=== PATIENT | female | born 1985 | race Two or more races ===

== ENCOUNTER 2017-03-04 00:08 | Emergency (ER) | payer MEDICAID ==
[~2017-03-04] VITALS: Ht 177.8 cm; Wt 108.9 kg
[2017-03-04] MEDS ORDERED: ALBUTEROL2.5 MG/3 M INH (00:18)
--- NOTE | 2017-03-04 00:41 | Emergency Room Report ---
History of Present Illness General Chief Complaint: Headache Source: Patient Present Illness HPI Is a 31-year-old female with no past medical history. She presented to the plan headache for last 4 days. Pain is motion left side but now diffuse. No relief with [id number] medication. No nausea or vomiting. No fever or chills. Pain is 10 out of 10. Does have photophobia. No focal deficit. Allergies: Coded Allergies: No Known Allergies (Unverified , 03/04/17) Patient History Past Medical History: none, see triage record, old chart reviewed Past Surgical History: none Pertinent Family History: none Social History: Denies: smoking Last Menstrual Period: February Now: No Immunizations: other Reviewed Nursing Documentation: PMH: Agreed, PSxH: Agreed Nursing Documentation-PMH Hx Asthma: Yes Review of Systems Eye: Denies: blurred vision, eye pain ENT: Denies: ear pain, nose congestion, throat swelling Respiratory: Denies: cough, shortness of breath Cardiovascular: Denies: chest pain, palpitations Gastrointestinal: Denies: abdominal pain, diarrhea, nausea, vomiting Musculoskeletal: Denies: back pain, joint pain Skin: Denies: rash Neurological: Reports: headache, Denies: numbness Endocrine: Denies: increased thirst, increased urine Hematologic/Lymphatic: Denies: easy bruising All Other Systems: negative except mentioned in HPI Physical Exam Vital Signs Date Time Temp Pulse Resp B/P Pulse Ox O2 Delivery O2 Flow Rate FiO2 03/04/17 00:13 98.1 56 16 157/79 98 Room Air vitals with hypertension Sp02 EP Interpretation: reviewed, normal General Appearance: well appearing, no apparent distress, alert Head: normocephalic, atraumatic Eyes: bilateral eye EOMI, bilateral eye PERRL ENT: hearing grossly normal, normal pharynx Neck: full range of motion, supple, no meningismus Respiratory: chest non-tender, lungs clear, normal breath sounds Cardiovascular #1: regular rate, rhythm, no murmur Gastrointestinal: normal bowel sounds, non tender, no mass, no organomegaly, no bruit, non-distended Musculoskeletal: back normal, gait/station normal, normal range of motion Psychiatric: mood/affect normal Skin: warm/dry Medical Decision Making Diagnostic Impression: Primary Impression: Headache Qualified Codes: R51 - Headache ER Course Patient with headache. Because it is new and worsen than her usual, CT scan was ordered. CT negative. CT/MRI/US Diagnostic Results CT/MRI/US Diagnostic Results : Imaging Test Ordered: cT head Impression negative per radiologist Last Vital Signs Date Time Temp Pulse Resp B/P Pulse Ox O2 Delivery O2 Flow Rate FiO2 03/04/17 00:13 98.1 56 16 157/79 98 Room Air Status: improved Disposition: HOME, SELF-CARE Condition: Stable Scripts Ibuprofen* (MOTRIN*) 600 Mg Tablet 600 MG ORAL THREE TIMES A DAY, #30 TAB 0 Refills Prov: MURRAY LONGORIA M.D. 03/04/17 Hydrocodone/Acetaminophen 5-325* (HYDROCODONE/ACETAMINOPHEN 5-325*) 1 Each Tablet 1 TAB ORAL Q6H Y for For Pain, #15 TAB 0 Refills Prov: MURRAY LONGORIA M.D. 03/04/17 Referrals: NOT CHOSEN [facility]/,REFERRING (PCP) Patient Instructions: General Headache Without Cause Additional Instructions: Followup with your DrLashell in 2-3 days. Return if worse. MURRAY LONGORIA M.D. Mar 04, 2017 00:41
[2017-03-04] MEDS ORDERED: Metoclopramide 10mg/2ml Inj IVP ONE (00:45)
[2017-03-04] MEDS ORDERED: Ketorolac 30mg Inj IV ONE (00:45)
[2017-03-04] MEDS ORDERED: DiphenhydrAMINE 50mg/ml Inj IVP ONE (00:45)
[2017-03-04] MEDS ORDERED: Dexamethasone 4mg/ml vial IVP ONE (00:45)
[2017-03-04] MEDS ORDERED: Morphine Sulfate 4mg/ml Inj IVP ONE (01:15)
[2017-03-04] MEDS ORDERED: HYDROCODON-ACE1 EA15 ORAL (02:01)
[2017-03-04] MEDS ORDERED: IBUPROFEN600 MG ORAL (02:01)
[2017-03-04 02:08] VITALS: BP 157/79
[2017-03-04 02:09] VITALS: BP 157/79
--- NOTE | 2017-03-04 09:07 | Diagnostic Imaging Report ---
Indication: PAIN Technique: Continuous helical CT scanning of the head was performed without intravenous contrast material. Axial and coronal 5 mm sections were generated. Radiation dose was minimized using automated exposure control Dose: Total Dose Length Product - DLP [address] Dose Index - CTDIvol(s) 70.38 mGy. Comparison: Findings: The ventricular system is normal in size and configuration. There is no shift of midline structures. No abnormal extra-axial fluid collections are noted. There is no evidence of intracerebral bleeding. No other abnormal high or low density areas are noted within the brain. Included orbits and sinuses are unremarkable. The calvarium is intact. Normal allen-white differentiation. Impression: Negative. This agrees with the preliminary interpretation provided overnight by [facility] service. The CT scanner at [facility] is accredited by the [employer] and the scans are performed using protocols designed to limit radiation exposure to as low as reasonably achievable to attain images of sufficient resolution adequate for diagnostic evaluation.
== END 2017-03-04 02:10 | disposition home or self-care (01) ==
LOC: EMR 00:21
DX: R51 Headache (principal); J45.909 Unspecified asthma, uncomplicated
CPT/HCPCS: 70450; 96374; 96375; 99284; J1100; J1200; J1885; J2270; J2405

== ENCOUNTER 2017-05-13 00:52 | Emergency (ER) | payer MEDICAID ==
[~2017-05-13] VITALS: Ht 177.8 cm; Wt 97.5 kg
[~2017-05-13 00:52] MED LIST: ALBUTEROL2.5 MG/3 M INH; HYDROCODON-ACE1 EA15 ORAL; IBUPROFEN600 MG ORAL
[2017-05-13] MEDS ORDERED: PREDNISONE10 MG ORAL (01:04)
[2017-05-13 01:10] VITALS: BP 129/74
[2017-05-13] MEDS ORDERED: BACTRIM DS TAB1 EAC1 ORAL (01:25)
[2017-05-13] MEDS ORDERED: MUPIROCIN22 GM TOPIC (01:25)
--- NOTE | 2017-05-13 01:26 | Emergency Room Report ---
History of Present Illness General Chief Complaint: Skin Rash/Abscess Source: Patient Present Illness HPI Is a 31-year-old female with a history of asthma. She presents with redness and itchiness to the back of her legs. Onset yesterday. No trauma. She was outside her at her aunts house. Benadryl help. Did not feel any biting her. Denies any other complaint. No fever or chills no nausea no vomiting. Allergies: Coded Allergies: No Known Allergies (Unverified , 05/13/17) Patient History Past Medical History: see triage record, old chart reviewed, asthma Past Surgical History: none Pertinent Family History: none Social History: Denies: smoking Last Menstrual Period: 2 weeks ago Now: No Immunizations: other Reviewed Nursing Documentation: PMH: Agreed, PSxH: Agreed Nursing Documentation-PMH Past Medical History: No History, Except For Hx Asthma: Yes Review of Systems Eye: Denies: eye pain, blurred vision ENT: Denies: ear pain, nose congestion, throat swelling Respiratory: Denies: cough, shortness of breath Cardiovascular: Denies: chest pain, palpitations Gastrointestinal: Denies: abdominal pain, diarrhea, nausea, vomiting Musculoskeletal: Denies: back pain, joint pain Skin: Denies: rash Neurological: Denies: headache, numbness Endocrine: Denies: increased thirst, increased urine Hematologic/Lymphatic: Denies: easy bruising All Other Systems: negative except mentioned in HPI Physical Exam Vital Signs Date Time Temp Pulse Resp B/P (MAP) Pulse Ox O2 Delivery O2 Flow Rate FiO2 05/13/17 00:59 98.1 52 16 129/74 96 Room Air vitals normal Sp02 EP Interpretation: reviewed, normal General Appearance: well appearing, no apparent distress, alert Head: normocephalic, atraumatic Eyes: bilateral eye PERRL, bilateral eye EOMI ENT: hearing grossly normal, normal pharynx Neck: full range of motion, supple, no meningismus Respiratory: chest non-tender, lungs clear, normal breath sounds Cardiovascular #1: regular rate, rhythm, no murmur Gastrointestinal: normal bowel sounds, non tender, no mass, no organomegaly, no bruit, non-distended Musculoskeletal: back normal, gait/station normal, normal range of motion, other - In the back of both popliteal areas, there is an area of erythema measuring about 2 cm. No abscess. On her right upper thigh there is a 1 cm area of erythema with surrounding edema. No abscess. Neurologic: alert, oriented x3 Psychiatric: mood/affect normal Skin: warm/dry Medical Decision Making Diagnostic Impression: Primary Impression: Cellulitis and abscess of lower extremity ER Course Patient with redness to her lower extremity. Most likely cellulitis. No evidence of abscess. Maybe an allergic reaction. We'll discharge home. Last Vital Signs Date Time Temp Pulse Resp B/P (MAP) Pulse Ox O2 Delivery O2 Flow Rate FiO2 05/13/17 00:59 98.1 52 16 129/74 96 Room Air Status: improved Disposition: HOME, SELF-CARE Condition: Stable Scripts Trimethoprim/Sulfamethoxazole 160/800* (BACTRIM DS TABLET*) 1 Each Tablet 1 TAB ORAL Q12H, #14 TAB 0 Refills Prov: MURRAY LONGORIA M.D. 05/13/17 Mupirocin* (MUPIROCIN*) 22 Gm Oint...g. 1 APPLIC TOPIC THREE TIMES A DAY, #22 GM Prov: MURRAY LONGORIA M.D. 05/13/17 Referrals: [facility] [place]ERR (PCP) Additional Instructions: Followup with your Dr. in 7 days. Keep wound clean. Return if worse. Clean with hydrogen peroxide. MURRAY LONGORIA M.D. May 13, 2017 01:26
[2017-05-13] MEDS ORDERED: Bactrim DS (160mg/800mg) tab ORAL ONE (01:30)
[2017-05-13 01:33] VITALS: BP 129/74
== END 2017-05-13 01:32 | disposition home or self-care (01) ==
LOC: EMR 01:13
DX: L03.116 Cellulitis of left lower limb (principal); L03.115 Cellulitis of right lower limb; J45.909 Unspecified asthma, uncomplicated
CPT/HCPCS: 99284

== ENCOUNTER 2018-03-13 20:59 | Emergency (ER) | payer MEDICAID ==
[~2018-03-13] VITALS: Ht 180.3 cm; Wt 80.7 kg
[~2018-03-13 20:59] MED LIST changes: +BACTRIM DS TAB1 EAC1 ORAL; +MUPIROCIN22 GM TOPIC; +PREDNISONE10 MG ORAL
[2018-03-13] MEDS ORDERED: NKM (21:12)
--- NOTE | 2018-03-13 21:22 | Emergency Room Report ---
History of Present Illness General Chief Complaint: General Complaint Source: Patient, Medical Record Present Illness HPI Patient presents with pain and swelling behind her L ear. This has been for at least 2 days. The pain is now rated 8/10 and worse when touched or when she lays on that side - more burning. Slight radiation up side of head. No change in hearing or pain with pull on ear. She thought it started as a bug bite. No treatment. No sore throat, trauma, cough. other rashes. She did not take anything for the pain. Not . Allergies: Coded Allergies: CODEINE (Verified Allergy, Unknown, 03/13/18) STRAWBERRY (Verified Allergy, Unknown, 03/13/18) Patient History Past Medical History: see triage record Social History: Denies: smoking Social History Narrative from home Last Menstrual Period: 02/19/18 Now: No Reviewed Nursing Documentation: PMH: Agreed; PSxH: Agreed Nursing Documentation-PMH Hx Asthma: Yes Review of Systems Constitutional: Reports: see HPI ENT: Reports: see HPI Respiratory: Reports: see HPI Cardiovascular: Denies: chest pain Genitourinary: Reports: see HPI Musculoskeletal: Reports: see HPI Skin: Reports: see HPI Neurological: Reports: see HPI Physical Exam Vital Signs Date Time Temp Pulse Resp B/P (MAP) Pulse Ox O2 Delivery O2 Flow Rate FiO2 03/13/18 21:09 98.6 58 16 119/80 96 Room Air 98.6 ENT: normal pharynx, TMs + canals normal, other - no pinna tenderness. Mastoid area with swollen skin and is area of tenderness Neck: full range of motion, supple, no bony tend Respiratory: chest non-tender, lungs clear, normal breath sounds Cardiovascular #1: regular rate, rhythm Cardiovascular #2: 2+ radial (R) Gastrointestinal: normal inspection Musculoskeletal: digits/nails normal, gait/station normal, normal range of motion Neurologic: oriented x3, grossly normal Psychiatric: mood/affect normal Skin: warm/dry, other - erythema behind L ear Medical Decision Making Diagnostic Impression: Primary Impression: Cellulitis Qualified Codes: L03.221 - Cellulitis of neck ER Course Patient with swelling and pain behind L ear. DDx: cellulitis, adenitis, OE amongst others. Not toxic or febrile. Exam most consistent with cellulitis and against mastoiditis. Antibiotics begun (will cover for possible P aeruginosa). Improved with treatment. Patient stable for outpatient observation and treatment. Last Vital Signs Date Time Temp Pulse Resp B/P (MAP) Pulse Ox O2 Delivery O2 Flow Rate FiO2 03/13/18 22:45 0/0 03/13/18 21:39 209.5 58 16 96 Room Air 209.5 Status: improved Disposition: HOME, SELF-CARE Condition: Improved Scripts Ibuprofen* (MOTRIN*) 600 Mg Tablet 600 MG ORAL Q6H PRN for For Pain, #20 TAB Prov: Dino Sue M.D. 03/13/18 Bacitracin (Bacitracin) 28.4 Gm Oint...g. 1 APPLIC TOPIC BID, #20 GM Prov: Dino Sue M.D. 03/13/18 Ciprofloxacin Hcl* (CIPROFLOXACIN HCL*) 500 Mg Tablet 500 MG ORAL Q12H, #14 TAB 0 Refills Prov: Dino Sue M.D. 03/13/18 Dino Sue M.D. Mar 13, 2018 21:22
[2018-03-13] MEDS ORDERED: IBUPROFEN600 MG ORAL (21:24)
[2018-03-13] MEDS ORDERED: BACITRACIN15 GM TOPIC (21:24)
[2018-03-13] MEDS ORDERED: CIPROFLOXACIN500 M2 ORAL (21:24)
[2018-03-13] MEDS ORDERED: Ciprofloxacin 500mg tab ORAL ONE (21:30)
[2018-03-13 21:39] VITALS: BP 119/80
[2018-03-13 22:45] VITALS: BP 0/0
== END 2018-03-13 22:45 | disposition home or self-care (01) ==
LOC: EMR 21:47
DX: L03.221 Cellulitis of neck (principal); J45.909 Unspecified asthma, uncomplicated; Z88.6 Allergy status to analgesic agent; Z91.018 Allergy to other foods
CPT/HCPCS: 99282

== ENCOUNTER 2018-03-17 21:42 | Emergency (ER) | payer MEDICAID ==
[~2018-03-17] VITALS: Ht 180.3 cm; Wt 81.6 kg
[~2018-03-17 21:42] MED LIST changes: +BACITRACIN15 GM TOPIC; +CIPROFLOXACIN500 M2 ORAL; +NKM
[2018-03-17] MEDS ORDERED: DiphenhydrAMINE 50mg/ml Inj IVP ONE (23:15)
[2018-03-17] MEDS ORDERED: Solu-MEDROL 125mg Inj IVP ONE (23:15)
[2018-03-17] MEDS ORDERED: PREDNISONE20 MG ORAL (23:46)
[2018-03-17] MEDS ORDERED: DOXYCYCLINE MO100 MG ORAL (23:46)
[2018-03-17] MEDS ORDERED: BENADRYL25 MG ORAL (23:46)
[2018-03-17] MEDS ORDERED: MUPIROCIN22 GM TOPIC (23:46)
--- NOTE | 2018-03-17 23:46 | Emergency Room Report ---
History of Present Illness General Chief Complaint: Skin Rash/Abscess Source: Patient, Medical Record Present Illness HPI Is a 32-year-old female who was seen here the other day for cellulitis of her left neck. She was prescribe Cipro and bacitracin. Since she took the antibiotics and use the ointment she is getting very itchy and breaking out more. Resting to be spreading to the rest of her body. Prickly in nature. No fever chills but no nausea no vomiting. She took Benadryl at home which helped. Worse with scratching. Respiratory issue. Allergies: Coded Allergies: CODEINE (Verified Allergy, Unknown, 03/13/18) STRAWBERRY (Verified Allergy, Unknown, 03/13/18) Patient History Past Medical History: see triage record, old chart reviewed Past Surgical History: other Pertinent Family History: none Social History: Denies: smoking Last Menstrual Period: last month Now: No Immunizations: other Reviewed Nursing Documentation: PMH: Agreed; PSxH: Agreed Nursing Documentation-PMH Hx Asthma: Yes Review of Systems Eye: Denies: eye pain, blurred vision ENT: Denies: ear pain, nose congestion, throat swelling Respiratory: Denies: cough, shortness of breath Cardiovascular: Denies: chest pain, palpitations Gastrointestinal: Denies: abdominal pain, diarrhea, nausea, vomiting Musculoskeletal: Denies: back pain, joint pain Skin: Reports: rash Neurological: Denies: headache, numbness Endocrine: Denies: increased thirst, increased urine Hematologic/Lymphatic: Denies: easy bruising All Other Systems: negative except mentioned in HPI Physical Exam Vital Signs Date Time Temp Pulse Resp B/P (MAP) Pulse Ox O2 Delivery O2 Flow Rate FiO2 03/17/18 22:19 98.5 48 16 118/76 93 Room Air 98.4 vitals unremarkable Sp02 EP Interpretation: reviewed, normal General Appearance: well appearing, no apparent distress, alert Head: normocephalic, atraumatic Eyes: bilateral eye PERRL, bilateral eye EOMI ENT: hearing grossly normal, normal pharynx Neck: full range of motion, supple, no meningismus, other - She has multiple small prickly rash behind her ear spreading down to her neck. Also similar rash to the scattered area of her torso. Respiratory: chest non-tender, lungs clear, normal breath sounds Cardiovascular #1: regular rate, rhythm, no murmur Gastrointestinal: normal bowel sounds, non tender, no mass, no organomegaly, no bruit, non-distended Musculoskeletal: back normal, gait/station normal, normal range of motion Psychiatric: mood/affect normal Skin: warm/dry Medical Decision Making Diagnostic Impression: Primary Impression: Cellulitis Qualified Codes: L03.221 - Cellulitis of neck Additional Impression: Allergic reaction caused by a drug Qualified Codes: T78.40XA - Allergy, unspecified, initial encounter ER Course Patient with allergic reaction to either Cipro and or bacitracin. We'll stop both of it. No evidence of anaphylaxis or rest or issue. This may be cellulitis. Unlikely to be shingles since his more than one dermatome and cross midline. Last Vital Signs Date Time Temp Pulse Resp B/P (MAP) Pulse Ox O2 Delivery O2 Flow Rate FiO2 03/17/18 22:19 98.5 48 16 118/76 93 Room Air 98.4 Status: improved Disposition: HOME, SELF-CARE Condition: Stable Scripts Mupirocin* (MUPIROCIN*) 22 Gm Oint...g. 1 APPLIC TOPIC THREE TIMES A DAY, #22 GM Prov: MURRAY LONGORIA M.D. 03/17/18 Prednisone* (PREDNISONE*) 20 Mg Tablet 40 MG ORAL DAILY, #10 TAB Prov: MURRAY LONGORIA M.D. 03/17/18 Doxycycline Monohydrate* (DOXYCYCLINE MONOHYDRATE*) 100 Mg Capsule 100 MG ORAL Q12H, #14 CAP 0 Refills Prov: MURRAY LONGORIA M.D. 03/17/18 Diphenhydramine Hcl* (BENADRYL*) 25 Mg Capsule 50 MG ORAL Q6H PRN for Itching, #30 CAP Prov: MURRAY LONGORIA M.D. 03/17/18 Referrals: [facility] [place] (PCP) Additional Instructions: Stop Cipro and bacitracin. Follow-up with your doctor in 7 days. Return of worse. MURRAY LONGORIA M.D. Mar 17, 2018 23:46
[2018-03-18 00:04] VITALS: BP 118/76
== END 2018-03-18 00:06 | disposition home or self-care (01) ==
LOC: EMR 22:39
DX: L03.221 Cellulitis of neck (principal); T50.905A Adverse effect of unspecified drugs, medicaments and biological substances, initial encounter; J45.909 Unspecified asthma, uncomplicated; Z88.6 Allergy status to analgesic agent; Z91.018 Allergy to other foods; Y92.9 Unspecified place or not applicable
CPT/HCPCS: 99284; J1200; J2930

== ENCOUNTER 2018-04-20 21:57 | Emergency (ER) | payer MEDICAID ==
[~2018-04-20] VITALS: Ht 180.3 cm; Wt 83.9 kg
[~2018-04-20 21:57] MED LIST changes: +BENADRYL25 MG ORAL; +DOXYCYCLINE MO100 MG ORAL; +PREDNISONE20 MG ORAL
--- NOTE | 2018-04-20 22:17 | Emergency Room Report ---
History of Present Illness General Chief Complaint: Chest Pain Source: Patient Present Illness HPI Patient is a 32 female who presented after increased chest discomfort. She describes as a pressure-like sensation. This of been present since approximate 5:00 in the morning. The patient seen by her doctor earlier in the day. She reportedly had normal EKG. Patient denies feeling dizzy or lightheaded. She denies any prior history of asthma. She had not been vomiting. She denies any leg pain or swelling. She reports having recent menses. She states said prior history of some anemia. She states she's not recently been tested. Allergies: Coded Allergies: CIPROFLOXACIN (Verified Allergy, Unknown, 04/20/18) CODEINE (Verified Allergy, Unknown, 03/13/18) STRAWBERRY (Verified Allergy, Unknown, 03/13/18) Patient History Past Medical History: see triage record Last Menstrual Period: 04/11/18 Now: No Reviewed Nursing Documentation: PMH: Agreed; PSxH: Agreed Nursing Documentation-PMH Hx Asthma: Yes Review of Systems All Other Systems: negative except mentioned in HPI Physical Exam Vital Signs Date Time Temp Pulse Resp B/P (MAP) Pulse Ox O2 Delivery O2 Flow Rate FiO2 04/20/18 22:02 98.2 65 116/74 Room Air 98.2 Sp02 EP Interpretation: reviewed, normal General Appearance: normal inspection, well appearing, no apparent distress, alert, GCS 15 Head: atraumatic ENT: normal ENT inspection, hearing grossly normal, normal voice Neck: normal inspection, full range of motion, supple, no bony tend Respiratory: normal inspection, lungs clear, normal breath sounds, no respiratory distress, no retraction, no wheezing Cardiovascular #1: regular rate, rhythm, no edema Gastrointestinal: normal inspection, normal bowel sounds, non tender, soft, no guarding, no hernia Genitourinary: no CVA tenderness Musculoskeletal: normal inspection, back normal, normal range of motion Neurologic: normal inspection, alert, responsive, speech normal Psychiatric: normal inspection, judgement/insight normal, mood/affect normal Skin: normal inspection, normal color, no rash Medical Decision Making Diagnostic Impression: Primary Impression: Atypical chest pain ER Course Patient presented for chest pain. Differential diagnosis included but was not limited to acute coronary syndrome, pulmonary embolism, pneumonia, aortic dissection, shingles, pneumothorax, aortic dissection, esophageal rupture, pericarditis. Because of complexity of patient's case laboratory testing and imaging studies were ordered. The laboratory studies were unremarkable. The chest x-ray showed no evidence of pneumonia infiltrate or pneumothorax. The patient given prescription for ibuprofen for pain.The patient is advised to follow up with primary care doctor in 1-2 days. Patient is advised to return if any worsening condition or if any changes in status that are concerning. This report is dictated with [employer] shoe salesperson software which may occasionally lead to discrepancies related to use of this software. Labs Test 04/20/18 22:40 White Blood Count 6.5 K/UL (4.8-10.8) Red Blood Count 4.31 M/UL (4.20-5.40) Hemoglobin 13.6 G/DL (12.0-16.0) Hematocrit 40.1 % (37.0-47.0) Mean Corpuscular Volume 93 FL (80-99) Mean Corpuscular Hemoglobin 31.5 PG (27.0-31.0) Mean Corpuscular Hemoglobin Concent 33.9 G/DL (32.0-36.0) Red Cell Distribution Width 12.4 % (11.6-14.8) Platelet Count 209 K/UL (150-450) Mean Platelet Volume 8.3 FL (6.5-10.1) Neutrophils (%) (Auto) 56.8 % (45.0-75.0) Lymphocytes (%) (Auto) 34.0 % (20.0-45.0) Monocytes (%) (Auto) 6.6 % (1.0-10.0) Eosinophils (%) (Auto) 1.4 % (0.0-3.0) Basophils (%) (Auto) 1.1 % (0.0-2.0) Urine Color Pale yellow Urine Appearance Clear Urine pH 6 (4.5-8.0) Urine Specific [place] 1.015 (1.005-1.035) Urine Protein Negative (NEGATIVE) Urine Glucose (UA) Negative (NEGATIVE) Urine Ketones Negative (NEGATIVE) Urine Occult Blood Negative (NEGATIVE) Urine Nitrite Negative (NEGATIVE) Urine Bilirubin Negative (NEGATIVE) Urine Urobilinogen 1 MG/DL (0.0-1.0) Urine Leukocyte Esterase Negative (NEGATIVE) Urine HCG, Qualitative Negative (NEGATIVE) Sodium Level 138 MMOL/L (136-145) Potassium Level 3.4 MMOL/L (3.5-5.1) Chloride Level 105 MMOL/L (98-107) Carbon Dioxide Level 25 MMOL/L (21-32) Anion Gap 8 mmol/L (5-15) Blood Urea Nitrogen 12 mg/dL (7-18) Creatinine 0.8 MG/DL (0.55-1.30) Estimat Glomerular Filtration Rate > 60 mL/min (>60) Glucose Level 109 MG/DL (74-106) Calcium Level 8.8 MG/DL (8.5-10.1) Total Bilirubin 0.8 MG/DL (0.2-1.0) Aspartate Amino Transf (AST/SGOT) 17 U/L (15-37) Alanine Aminotransferase (ALT/SGPT) 19 U/L (12-78) Alkaline Phosphatase 55 U/L (46-116) Total Creatine Kinase 184 U/L (26-308) Creatine Kinase MB 2.2 NG/ML (0.0-3.6) Creatine Kinase MB Relative Index 1.1 Troponin I 0.000 ng/mL (0.000-0.056) Pro-B-Type Natriuretic Peptide 19 pg/mL (0-125) Total Protein 7.1 G/DL (6.4-8.2) Albumin 3.6 G/DL (3.4-5.0) Globulin 3.5 g/dL Albumin/Globulin Ratio 1.0 (1.0-2.7) Lipase 104 U/L (73-393) EKG Diagnostic Results Rate: normal - 60 Rhythm: NSR ST Segments: no acute changes ASA given to the pt in ED: No Rhythm Strip Diag. Results EP Interpretation: yes Rhythm: NSR, no PVC's, no ectopy Last Vital Signs Date Time Temp Pulse Resp B/P (MAP) Pulse Ox O2 Delivery O2 Flow Rate FiO2 04/20/18 22:02 98.2 65 116/74 Room Air 98.2 Status: improved Disposition: HOME, SELF-CARE Condition: Stable Scripts Ibuprofen* (MOTRIN*) 600 Mg Tablet 600 MG ORAL Q8H PRN for For Pain, #30 TAB 0 Refills Prov: Valdo Abel MD 04/21/18 Valdo Abel MD Apr 20, 2018 22:17
[2018-04-20] MEDS ORDERED: Albuterol/Ipratropium 3ml neb HHN ONE (22:45)
[2018-04-20 23:02] LABS: APPEARANCE,URINE CLEAR; BILIRUBIN, URINE NEGATIVE (NEGATIVE); COLOR,URINE PALE YELLOW; GLUCOSE, URINE (UA) NEGATIVE (NEGATIVE); KETONES,URINE NEGATIVE (NEGATIVE); LEUKOCYTE ESTERASE ,URINE NEGATIVE (NEGATIVE); NITRITE,URINE NEGATIVE (NEGATIVE); PH,URINE 6 (4.5-8.0); PROTEIN,URINE NEGATIVE (NEGATIVE); UROBILINOGEN,URINE 1 MG/DL (0.0-1.0)
[2018-04-20 23:03] LABS: BASOPHILS % (AUTO) 1.1 % (0.0-2.0); EOSINOPHILS % (AUTO) 1.4 % (0.0-3.0); HEMATOCRIT 40.1 % (37.0-47.0); HEMOGLOBIN 13.6 G/DL (12.0-16.0); MEAN CORPUSCULAR VOLUME 93 FL (80-99); MONOCYTES % (AUTO) 6.6 % (1.0-10.0); NEUTROPHILS % (AUTO) 56.8 % (45.0-75.0); PLATELET COUNT 209 K/UL (150-450); RED BLOOD COUNT 4.31 M/UL (4.20-5.40); RED CELL DISTRIBUTION WIDTH 12.4 % (11.6-14.8); WHITE BLOOD COUNT 6.5 K/UL (4.8-10.8)
[2018-04-20 23:15] LABS: ANION GAP 8 mmol/L (5-15); BLOOD UREA NITROGEN 12 mg/dL (7-18); CALCIUM 8.8 MG/DL (8.5-10.1); CARBON DIOXIDE 25 MMOL/L (21-32); CHLORIDE 105 MMOL/L (98-107); CREATININE 0.8 MG/DL (0.55-1.30); POTASSIUM 3.4 MMOL/L (3.5-5.1); SODIUM 138 MMOL/L (136-145)
[2018-04-20 23:29] LABS: ALANINE AMINOTRANSFERASE 19 U/L (12-78); ALBUMIN 3.6 G/DL (3.4-5.0); ALKALINE PHOSPHATASE 55 U/L (46-116); ASPARTATE AMINO TRANSFERASE 17 U/L (15-37); BILIRUBIN,TOTAL 0.8 MG/DL (0.2-1.0); CKMB 2.2 NG/ML (0.0-3.6); CREATINE KINASE 184 U/L (26-308)
[2018-04-21 00:04] VITALS: BP 118/74
[2018-04-21] MEDS ORDERED: Ketorolac 30mg Inj IV ONE (00:30)
[2018-04-21] MEDS ORDERED: IBUPROFEN600 MG ORAL (00:52)
[2018-04-21 01:03] VITALS: BP 132/94
[2018-04-21 01:05] VITALS: BP 132/94
--- NOTE | 2018-04-21 10:33 | Diagnostic Imaging Report ---
Indication: Chest pain Technique: One view of the chest Comparison: none Findings: Lungs and pleural spaces are clear. Heart size is normal Impression: No acute process
== END 2018-04-21 01:05 | disposition home or self-care (01) ==
LOC: EMR 22:24
DX: R07.89 Other chest pain (principal); J45.909 Unspecified asthma, uncomplicated; Z91.018 Allergy to other foods; Z88.8 Allergy status to other drugs, medicaments and biological substances
CPT/HCPCS: 36415; 71045; 80053; 81003; 81025; 82550; 82553; 83690; 83880; 84484; 85025; 93005; 94640; 94664; 96374; 99284; J1885; J7620

== ENCOUNTER 2018-06-01 19:22 | Emergency (ER) | payer MEDICAID ==
[~2018-06-01] VITALS: Ht 180.3 cm; Wt 108.0 kg
[2018-06-01] MEDS ORDERED: Morphine Sulfate 4mg/ml Inj (IV USE ONLY) IVP ONE (20:00)
[2018-06-01 20:24] LABS: BASOPHILS % (AUTO) 1.6 % (0.0-2.0); EOSINOPHILS % (AUTO) 0.7 % (0.0-3.0); HEMATOCRIT 40.6 % (37.0-47.0); HEMOGLOBIN 14.1 G/DL (12.0-16.0); LYMPHOCYTES % (AUTO) 37.1 % (20.0-45.0); MEAN CORPUSCULAR VOLUME 93 FL (80-99); MONOCYTES % (AUTO) 6.6 % (1.0-10.0); PLATELET COUNT 221 K/UL (150-450); RED BLOOD COUNT 4.37 M/UL (4.20-5.40); RED CELL DISTRIBUTION WIDTH 11.6 % (11.6-14.8); WHITE BLOOD COUNT 8.8 K/UL (4.8-10.8)
[2018-06-01 20:44] LABS: ANION GAP 13 mmol/L (5-15); BLOOD UREA NITROGEN 7 mg/dL (7-18); CALCIUM 9.5 MG/DL (8.5-10.1); CARBON DIOXIDE 21 MMOL/L (21-32); CHLORIDE 102 MMOL/L (98-107); CREATININE 0.9 MG/DL (0.55-1.30); POTASSIUM 3.5 MMOL/L (3.5-5.1); SODIUM 135 MMOL/L (136-145)
[2018-06-01] MEDS ORDERED: Ketorolac 30mg Inj IV ONE (20:45)
[2018-06-01 20:49] LABS: ALANINE AMINOTRANSFERASE 19 U/L (12-78); ALBUMIN 3.9 G/DL (3.4-5.0); ALKALINE PHOSPHATASE 56 U/L (46-116); ASPARTATE AMINO TRANSFERASE 16 U/L (15-37); BILIRUBIN,TOTAL 0.9 MG/DL (0.2-1.0)
[2018-06-01 21:00] LABS: APPEARANCE,URINE CLEAR; BILIRUBIN, URINE NEGATIVE (NEGATIVE); COLOR,URINE PALE YELLOW; GLUCOSE, URINE (UA) NEGATIVE (NEGATIVE); KETONES,URINE NEGATIVE (NEGATIVE); LEUKOCYTE ESTERASE ,URINE NEGATIVE (NEGATIVE); NITRITE,URINE NEGATIVE (NEGATIVE); PH,URINE 8 (4.5-8.0); PROTEIN,URINE NEGATIVE (NEGATIVE); UROBILINOGEN,URINE NORMAL MG/DL (0.0-1.0)
[2018-06-01] MEDS ORDERED: CYCLOBENZAPRINE10 MG ORAL (21:05)
[2018-06-01] MEDS ORDERED: IBUPROFEN600 MG ORAL (21:05)
[2018-06-01] MEDS ORDERED: NORCO 5-325 TA1 EACH ORAL (21:05)
[2018-06-01 21:23] VITALS: BP 124/78
[2018-06-01 21:24] VITALS: BP 124/78
--- NOTE | 2018-06-01 21:42 | Emergency Room Report ---
History of Present Illness General Chief Complaint: Back Pain-No Injury Source: Patient Present Illness HPI Patient is a 32-year-old female who presented after increased low back pain radiating to the left leg. The patient had previous history of asthma. She reports taking steroids intermittently. She denies any recent trauma. She denies any fever. She denies IV drug use. The patient was having worsening pain the with ambulation. She denies any abdominal discomfort or dysuria. The pain was located to her low back.The patient states that she had previously been having pain since yesterday. She presented having increased difficulty with ambulation.The patient noted in the low mid back and radiated to the left leg.Patient denies any recent steroid use. Allergies: Coded Allergies: CIPROFLOXACIN (Verified Allergy, Unknown, 04/20/18) CODEINE (Verified Allergy, Unknown, 03/13/18) STRAWBERRY (Verified Allergy, Unknown, 03/13/18) Patient History Past Medical History: see triage record, asthma Now: No Reviewed Nursing Documentation: PMH: Agreed; PSxH: Agreed Nursing Documentation-PMH Hx Asthma: Yes Review of Systems All Other Systems: negative except mentioned in HPI Physical Exam Vital Signs Date Time Temp Pulse Resp B/P (MAP) Pulse Ox O2 Delivery O2 Flow Rate FiO2 06/01/18 19:25 99.3 75 20 129/87 99 Room Air 99.3 General Appearance: well appearing, no apparent distress, alert, GCS 15, non- toxic Head: normocephalic, atraumatic ENT: hearing grossly normal, normal voice Neck: full range of motion, supple Respiratory: no respiratory distress, speaking full sentences Cardiovascular #1: normal inspection, normal peripheral pulses, regular rate, rhythm Gastrointestinal: normal inspection Musculoskeletal: normal inspection, decreased range of mation, other - antalgic gait Neurologic: normal inspection, alert, oriented x3, responsive, transmission line engineer III-XII nml as tested, abnormal gait - antaglic Psychiatric: mood/affect normal Skin: no rash Medical Decision Making Diagnostic Impression: Primary Impression: Sciatica ER Course Patient presented for low back pain. Differential diagnosis included but was not limited to herniated disc, cauda equina syndrome, abdominal aortic aneurysm , perforated ulcer, spinal epidural abscess, spinal stenosis, lumbar fracture, metastatic lesion, pyelonephritis. The patient was noted to have the what appears to be significant low back pain. The patient was given IV narcotic pain medications as well as anti-inflammatory medications. Urinalysis showed no evidence of infection or hematuria. the test was negative. The patient's urine drug screen was positive for marijuana. Patient's the urine was collected after she was given IV opiates. The patient does not appear to have any evidence of intra-abdominal pathology. The patient does not have any known risk factors for epidural abscess.The patient was advised that she should follow-up with her primary care physician for MRI as she does appear to have some radicular pain. The patient was noted to be ambulatory while in the emergency department. The patient appears to be stable for outpatient management.She was given prescription for oral narcotic pain medications as well as muscle relaxants. Labs Test 06/01/18 20:14 06/01/18 20:45 White Blood Count 8.8 K/UL (4.8-10.8) Red Blood Count 4.37 M/UL (4.20-5.40) Hemoglobin 14.1 G/DL (12.0-16.0) Hematocrit 40.6 % (37.0-47.0) Mean Corpuscular Volume 93 FL (80-99) Mean Corpuscular Hemoglobin 32.2 PG (27.0-31.0) Mean Corpuscular Hemoglobin Concent 34.7 G/DL (32.0-36.0) Red Cell Distribution Width 11.6 % (11.6-14.8) Platelet Count 221 K/UL (150-450) Mean Platelet Volume 9.1 FL (6.5-10.1) Neutrophils (%) (Auto) 54.0 % (45.0-75.0) Lymphocytes (%) (Auto) 37.1 % (20.0-45.0) Monocytes (%) (Auto) 6.6 % (1.0-10.0) Eosinophils (%) (Auto) 0.7 % (0.0-3.0) Basophils (%) (Auto) 1.6 % (0.0-2.0) Sodium Level 135 MMOL/L (136-145) Potassium Level 3.5 MMOL/L (3.5-5.1) Chloride Level 102 MMOL/L (98-107) Carbon Dioxide Level 21 MMOL/L (21-32) Anion Gap 13 mmol/L (5-15) Blood Urea Nitrogen 7 mg/dL (7-18) Creatinine 0.9 MG/DL (0.55-1.30) Estimat Glomerular Filtration Rate > 60 mL/min (>60) Glucose Level 95 MG/DL (74-106) Calcium Level 9.5 MG/DL (8.5-10.1) Total Bilirubin 0.9 MG/DL (0.2-1.0) Aspartate Amino Transf (AST/SGOT) 16 U/L (15-37) Alanine Aminotransferase (ALT/SGPT) 19 U/L (12-78) Alkaline Phosphatase 56 U/L (46-116) Total Protein 7.9 G/DL (6.4-8.2) Albumin 3.9 G/DL (3.4-5.0) Globulin 4.0 g/dL Albumin/Globulin Ratio 1.0 (1.0-2.7) Urine Color Pale yellow Urine Appearance Clear Urine pH 8 (4.5-8.0) Urine Specific [place] 1.010 (1.005-1.035) Urine Protein Negative (NEGATIVE) Urine Glucose (UA) Negative (NEGATIVE) Urine Ketones Negative (NEGATIVE) Urine Blood Negative (NEGATIVE) Urine Nitrite Negative (NEGATIVE) Urine Bilirubin Negative (NEGATIVE) Urine Urobilinogen Normal MG/DL (0.0-1.0) Urine Leukocyte Esterase Negative (NEGATIVE) Urine RBC 0-2 /HPF (0 - 2) Urine WBC 0-2 /HPF (0 - 2) Urine Squamous Epithelial Cells Occasional /LPF Urine Bacteria Occasional /HPF (NONE) Urine HCG, Qualitative Negative (NEGATIVE) Urine Opiates Screen Positive (NEGATIVE) Urine Barbiturates Screen Negative (NEGATIVE) Phencyclidine (PCP) Screen Negative (NEGATIVE) Urine Amphetamines Screen Negative (NEGATIVE) Urine Benzodiazepines Screen Negative (NEGATIVE) Urine Cocaine Screen Negative (NEGATIVE) Urine Marijuana (THC) Screen Positive (NEGATIVE) Last Vital Signs Date Time Temp Pulse Resp B/P (MAP) Pulse Ox O2 Delivery O2 Flow Rate FiO2 06/01/18 21:24 98.6 84 20 124/78 97 Room Air 98.6 Status: improved Disposition: HOME, SELF-CARE Condition: Stable Scripts Hydrocodone Bit/Acetaminophen 5-325* (NORCO 5-325*) 1 Each Tablet 1 TAB ORAL Q6H PRN for For Pain, #20 TAB 0 Refills Prov: Valdo Abel MD 06/01/18 Ibuprofen* (MOTRIN*) 600 Mg Tablet 600 MG ORAL Q8H PRN for For Pain, #30 TAB 0 Refills Prov: Valdo Abel MD 06/01/18 Cyclobenzaprine Hcl* (FLEXERIL*) 10 Mg Tablet 10 MG ORAL TID PRN for Muscle Spasm, #20 TAB Prov: Valdo Abel MD 06/01/18 Patient Instructions: Back Pain, Adult Valdo Abel MD Jun 01, 2018 21:42
== END 2018-06-01 21:26 | disposition home or self-care (01) ==
LOC: EMR 20:02
DX: M54.30 Sciatica, unspecified side (principal); J45.909 Unspecified asthma, uncomplicated
CPT/HCPCS: 36415; 80053; 80307; 81001; 81025; 85025; 96374; 96375; 99284; J1885; J2270; J2405

== ENCOUNTER 2018-12-05 07:26 | Emergency (ER) | payer MEDICAID ==
[~2018-12-05] VITALS: Ht 177.8 cm; Wt 90.7 kg
[~2018-12-05 07:26] MED LIST changes: +CYCLOBENZAPRINE10 MG ORAL; +NORCO 5-325 TA1 EACH ORAL
[2018-12-05 07:29] VITALS: BP 123/80
--- NOTE | 2018-12-05 07:38 | NUR ---
ED Nurse Note: patient walked into ED with steady gait, alert and awake x4, c/o Right hand numbness especially on the fingers that started about 2 weeks ago, patient reports that she also feels numbness on the right leg, and "feels her nerve pinch on the right side back" when she moves.
[2018-12-05] MEDS ORDERED: MEDROL DOSEPAK4 MG ORAL (08:08)
[2018-12-05] MEDS ORDERED: IBUPROFEN600 MG ORAL (08:08)
[2018-12-05 08:12] VITALS: BP 120/81
--- NOTE | 2018-12-05 08:12 | Emergency Room Report ---
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 Denies any change with movement denies any change in sensation of heat Denies any neck pain or photophobia Denies any change with sales team member Patient also complained that she was having pain to the right lower back area some radiation to be buttock and upper leg Denies any loss of control of bowel or urination Denies any difficulty ambulating She feels that the hand discomfort is worse in the morning after waking Allergies: Coded Allergies: CIPROFLOXACIN (Verified Allergy, Unknown, 04/20/18) CODEINE (Verified Allergy, Unknown, 03/13/18) STRAWBERRY (Verified Allergy, Unknown, 03/13/18) Patient History Past Medical History: see triage record Pertinent Family History: none Last Menstrual Period: 11/2018 Now: No Reviewed Nursing Documentation: PMH: Agreed; PSxH: Agreed Nursing Documentation-PMH Past Medical History: No History, Except For Hx Asthma: Yes Review of Systems All Other Systems: negative except mentioned in HPI Physical Exam Vital Signs Date Time Temp Pulse Resp B/P (MAP) Pulse Ox O2 Delivery O2 Flow Rate FiO2 12/05/18 07:29 98.1 57 20 123/80 96 Room Air Sp02 EP Interpretation: reviewed, normal General Appearance: well appearing, no apparent distress Head: normocephalic, atraumatic Eyes: bilateral eye PERRL, bilateral eye EOMI ENT: hearing grossly normal, normal pharynx, TMs + canals normal, uvula midline Neck: full range of motion, supple, no meningismus, no bony tend Respiratory: lungs clear, normal breath sounds, no rhonchi, no respiratory distress, no retraction, no accessory muscle use Cardiovascular #1: normal peripheral pulses, regular rate, rhythm, no edema, no gallop, no JVD, no murmur Gastrointestinal: normal bowel sounds, non tender, soft, no mass, no organomegaly, non-distended, no guarding, no hernia, no pulsatile mass, no rebound Genitourinary: no CVA tenderness Musculoskeletal: normal inspection Neurologic: oriented x3, responsive, or director III-XII nml as tested, motor strength/ tone normal, sensory intact - Patient subjectively complains of numbness and tingling sensation involving the fifth fourth and third digit on the right hand Psychiatric: mood/affect normal Skin: normal color, no rash, warm/dry, palpation normal Lymphatic: normal inspection, no adenopathy Medical Decision Making Diagnostic Impression: Primary Impression: radiculopathy Additional Impression: Low back pain ER Course Multiple differentials and consideration including but not limited to neurological, neurosurgical, central processes versus peripheral process Patient has fairly clear radicular nerve distribution on the right hand There is also previous complaints with sciatica which appeared to be also exacerbated I do not feel the patient is having acute stroke Other differentials such as tumors or masses need to be considered at this time patient does not meet criteria for emergency imaging requires close follow-up and provided with referrals Last Vital Signs Date Time Temp Pulse Resp B/P (MAP) Pulse Ox O2 Delivery O2 Flow Rate FiO2 12/05/18 07:47 61 18 Room Air 12/05/18 07:29 98.1 123/80 96 Status: unchanged Disposition: HOME, SELF-CARE Condition: Stable Scripts Methylprednisolone (Methylprednisolone*) 4MG Dspk 4 MG ORAL DIRECTED for 6 Days, #21 EA 0 Refills Day 1: Two tablets before breakfast, one after lunch, one after dinner, and two at bedtime. If started late in the day, take all six tablets at once or divide into two or three doses, unless otherwise directed by prescriber. Day 2: One tablet before breakfast, one after lunch, one after dinner, and two at bedtime Day 3: One tablet before breakfast, one after lunch, one after dinner, and one at bedtime Day 4: One tablet before breakfast, one after lunch, and one at bedtime Day 5: One tablet before breakfast and one at bedtime Day 6: One tablet before breakfast Prov: Stephanie Anthony DO 12/05/18 Ibuprofen* (MOTRIN*) 600 Mg Tablet 600 MG ORAL Q8H PRN for For Pain, #20 TAB 0 Refills Prov: Stephanie Anthony DO 12/05/18 Referrals: [facility] Bocanegra. [facility] Patient Instructions: Back Pain, Adult, [id number], Cervical Radiculopathy, [id number] Additional Instructions: Patient is provided with the discharge instructions notified to follow up with primary doctor in the next 2-3 days otherwise return to the er with any worsening symptoms. Please note that this report is being documented using DRAGON technology. This can lead to erroneous entry secondary to incorrect interpretation by the dictating instrument. Stephanie Anthony DO Dec 05, 2018 08:12
[2018-12-05 08:13] VITALS: BP 120/81
--- NOTE | 2018-12-05 08:14 | NUR ---
ER DISCHARGE NOTE: Patient is cleared to be discharged per ERMD, pt is aox4, on room air, with stable vital signs. pt was given dc and prescription instructions, pt was able to verbalize understanding, pt id band removed without complications. pt is able to ambulate with steady gait. pt took all belongings.
== END 2018-12-05 08:14 | disposition home or self-care (01) ==
LOC: EMR 08:00
DX: M54.10 Radiculopathy, site unspecified (principal); M54.40 Lumbago with sciatica, unspecified side; Z88.6 Allergy status to analgesic agent; Z91.018 Allergy to other foods
CPT/HCPCS: 99282